=== PATIENT | male | born 1965 | race Caucasian/White ===

== ENCOUNTER 2019-01-28 20:22 | Observation (INO) ==
[2019-01-28 20:59] LABS: Hematocrit 43.7 % (37.5-50.1); Hemoglobin 15.2 g/dL (12.9-16.9); Mean Corpuscular HGB Conc 34.8 g/dL (31.6-35.5); Mean Corpuscular Hemoglobin 29.6 pg (28.0-33.3); Mean Platelet Volume 10.9 fL (9.4-12.4); Platelet Count 288 K/mcL (140-400); Red Blood Count 5.14 M/mcL (4.19-5.50); White Blood Count 8.5 K/mcL (4.3-11.1)
[2019-01-28 21:23] LABS: BUN/Creatinine Ratio 12 (6-26); Blood Urea Nitrogen 27 mg/dL (6-20); Carbon Dioxide 27 mEq/L (23-29); Chloride 106 mEq/L (98-107); Glucose 152 mg/dL (70-105); Osmolality,Calculated 300 (280-300); Potassium 3.6 mEq/L (3.5-5.1); Sodium 141 mEq/L (136-145); Troponin I < 0.03 ng/mL (< 0.04); eGFR For African Americans 39 (> 60); eGFR For Non-African Americans 32 (> 60)
[2019-01-29] MEDS ORDERED: Naloxone 0.4 MG/ML INJ IVP PRN (03:00)
--- NOTE | 2019-01-29 03:09 | Internal Med History&Physical ---
Date of Encounter: 01/29/19 Time of Encounter: 02:30 Internal Medicine - H&P: HPI Chief complaint: Chest Pain Admitted From: Home Plans for Post Hospital Care: Home History of present illness: Mr. Puckett is a 53 year old male with past medical history significant for hypertension who presents for complaints of intermittent chest pain across chest over past 3-4 weeks. Pain is occurring more frequently and becoming more intense so decided to come to ER for further evaluation. Pain is associated with shortness of breath, diaphoresis, and dizziness. Denies any known exacerbating factors but does report pain is somewhat improved with aspirin and ibuprofen. Denies feeling like he is going to pass out. Chest x-ray showed no acute abnormality detected. EKG showed sinus rhythm. Currently is pain-free at this time. Currently denies any headache, chest pain, shortness of breath, abdominal pain, nausea, bowel or bladder changes. Denies previous history of echocardiogram but does report stress test around 2002 that was normal as far as he knows. Follows intermittently with a primary care provider but denies any other routine follow-up. Reports checking his blood pressures regularly at home and systolic averaging 120-140. Past Med Surg Social Fam HX - Past Medical History Medical history: hypertension Psychiatric history: no psych history - Past Surgical History Surgical History: orthopedic, other Additional surgical history: Left shoulder surgery - Social History Smoking Status: Never smoker Smokeless Tobacco Status: No Alcohol use: occasionally Drug use: none - Family History Brother Hx Family Cardiac Disorders: Yes Sister Hx Family Cardiac Disorders: Yes Internal Medicine - H&P: Meds Meclizine [Antivert] 25 mg PO TID PRN 01/29/19 [History] Metoprolol Tartrate 50 mg PO DAILY 01/29/19 [History] Triamterene/Hydrochlorothiazid [Triamterene-Hctz 75-50 mg Tab] 1 each PO DAILY 01/29/19 [History] Allergy/AdvReac Type Severity Reaction Status Date / Time No Known Allergies Allergy Verified 01/28/19 21:14 All Systems PM: A 10-system review of systems was performed and is negative for pertinent findings except as documented above in the HPI. - Constitutional Vitals: Temp Pulse Resp BP Pulse Ox 97.7 F 85 14 138/96 97 01/29/19 02:46 01/29/19 02:46 01/29/19 02:46 01/29/19 02:46 01/29/19 02:46 Exam: General: Alert and oriented. Skin:Normal color, no rash, no lesions. HEENT:Pupils equal, round and reactive. Cardiovascular:Normal S1 & S2, no rubs, murmurs or gallops. No JVD. Pulse regular. Lungs:Breath sounds decreased, no wheezes or crackles. Abdomen:Soft, non-tender, no rigidity. Extremities:No deformity, no edema or tenderness, no joint swelling or clubbing. Neurological:Normal cognition and motor skills. Pulses:Carotid and radial pulses normal +2. Rest of the physical exam is non contributory. Internal Med - H&P Results - Labs CBC & Chem 7: 01/28/19 20:42 01/28/19 20:42 Labs: Short CBC 01/28/19 Range/Units 20:42 WBC 8.5 (4.3-11.1) K/mcL Hgb 15.2 (12.9-16.9) g/dL Hct 43.7 (37.5-50.1) % Plt Count 288 (140-400) K/mcL BMP 01/28/19 20:42 Sodium 141 Potassium 3.6 Chloride 106 Carbon Dioxide 27 BUN 27 H Creatinine 2.17 H Glucose 152 H Calcium 9.0 Cardiac Enzymes 01/28/19 Range/Units 20:42 Troponin I < 0.03 (< 0.04) ng/mL - Impressions ITS Impressions Chest X-Ray 01/28/19 20:50 IMPRESSION: No acute abnormality detected. D/ / Jovanny Arias MD / Jovanny Arias MD Interpreting Provider: Jovanny Arias MD - Assessment and Plan (1) Chest pain Current Visit: Yes Status: Acute Assessment and plan: Continuous cardiac monitoring. Initial troponin negative, serial troponins ordered. Echocardiogram ordered. Consider cardiac stress test pending renal function or perform without contrast. NPO. Qualifiers: Chest pain type: unspecified Qualified Code(s): R07.9 - Chest pain, unspecified (2) Kidney dysfunction Current Visit: Yes Status: Acute Assessment and plan: BUN 27, creatinine 2.17, GFR 32. No previous labs for comparison, reports recently being told by PCP renal function elevated but unsure of lab values. Gentle IVF hydration ordered. Avoid nephrotoxins, hold diuretic. Repeat labs ordered. Nephrology consult ordered, will need called in a.m. (3) Hypertension Current Visit: Yes Status: Chronic Assessment and plan: Continue home medication once verified. Qualifiers: Hypertension type: unspecified Qualified Code(s): I10 - Essential (primary) hypertension - Time Spent With Patient Total time spent is greater than 50% in coordination of care (as documented) at patient's floor/unit and/or counseling patient:
[2019-01-29] MEDS ORDERED: 0.9 % Sodium Chloride 1,000 ML IVC SCH ×2 (03:15)
[2019-01-29] MEDS: *HR* Heparin 5,000 UNIT/ML VIAL SQ SCH ×2 (06:08→18:18)
[2019-01-29 09:08] LABS: Basophils % 0.6 %; Eosinophils # 0.7 K/mcL (0.0-0.6); Eosinophils % 9.6 %; Hematocrit 41.9 % (37.5-50.1); Hemoglobin 14.1 g/dL (12.9-16.9); Immature Granulocytes % 0.9 % (0-4); Lymphocytes # 1.3 K/mcL (0.6-4.6); Lymphocytes % 18.8 %; Mean Corpuscular HGB Conc 33.7 g/dL (31.6-35.5); Mean Corpuscular Hemoglobin 29.3 pg (28.0-33.3); Mean Corpuscular Volume 86.9 fL (83.0-100.0); Mean Platelet Volume 10.7 fL (9.4-12.4); Monocytes # 0.7 K/mcL (0.0-1.3); Monocytes % 9.4 %; Neutrophils # 4.2 K/mcL (1.6-8.9); Platelet Count 243 K/mcL (140-400); Red Blood Count 4.82 M/mcL (4.19-5.50); Segmented Neutrophils % 60.7 %; White Blood Count 6.9 K/mcL (4.3-11.1)
[2019-01-29 09:32] LABS: BUN/Creatinine Ratio 13 (6-26); Blood Urea Nitrogen 25 mg/dL (6-20); Calcium 8.6 mg/dL (8.6-10.3); Carbon Dioxide 27 mEq/L (23-29); Chloride 108 mEq/L (98-107); Glucose 100 mg/dL (70-105); Osmolality,Calculated 294 (280-300); Potassium 3.8 mEq/L (3.5-5.1); Sodium 140 mEq/L (136-145); Troponin I < 0.03 ng/mL (< 0.04); eGFR For African Americans 45 (> 60); eGFR For Non-African Americans 37 (> 60)
[2019-01-29] MEDS ORDERED: Regadenoson 0.4 MG/5 ML SYRINGE IVP ONE (11:39)
--- NOTE | 2019-01-29 12:51 | Event Note ---
Date of Encounter: 01/29/19 Time of Encounter: 10:00 Patient was seen and examined at bedside-currently denies any chest pain or shortness of breath he will go for cardiac stress test today-continue IV fluid awaiting nephrology's recommendations discussed with the patient who verbalized understanding
[2019-01-29 13:44] LABS: Creatinine,Urine 122 mg/dL; Microalbumin,Urine < 7 mg/L
--- NOTE | 2019-01-29 13:57 | Nephrology Consult Note ---
Date of Encounter: 01/29/19 Time of Encounter: 13:00 Assessment and Plan (1) Kidney dysfunction Current Visit: Yes Status: Acute Elevated SCr unclear if Acute vs chronic in the setting of likely decreased po fluids while working outside in the heat Will obtain US of kidney Will check urine studies with UA, urine noted negative for proteinuria and esoin ophil pending Avoid nephrotoxins if possible Continue IVF for now Will add cpk and uric acid levels to labs drawn (2) Chest pain Current Visit: Yes Status: Acute Per primary, stress test today Qualifiers: Chest pain type: unspecified Qualified Code(s): R07.9 - Chest pain, u nspecified (3) Hypertension Current Visit: Yes Status: Chronic stable, continue current regimen but hold diuretics Qualifiers: Hypertension type: unspecified Qualified Code(s): I10 - Essential (primary) hypertension History of Present Illness - Reason for Consult Consult date: 01/29/19 Acute Kidney Injury Requesting physician: Augustin Flores - History of Present Illness 53 y o male with PMH of HTN admitted with chest pain, undergoing cardiac workup and noted with elevated SCr. Renal consulted for management of renal fxn. Pt was made recently aware of elevated SCR at 1.75 by pcp and told to drinking more fluids. 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 SCr noted at 2.17, GFR 32 improving to 1.93, GFR 37 overnight on IVF. Pt seen and examined with family ay bedside. Past Med Surg Social Fam HX - Past Medical History Medical history: hypertension Psychiatric history: no psych history - Past Surgical History Surgical History: orthopedic, other Additional surgical history: Left shoulder surgery - Social History Smoking Status: Never smoker Smokeless Tobacco Status: No Alcohol use: occasionally Drug use: none - Family History Brother Hx Family Cardiac Disorders: Yes Sister Hx Family Cardiac Disorders: Yes Medications and Allergies RX: Meclizine [Antivert] 25 mg PO TID PRN 01/29/19 [History] RX: Metoprolol Tartrate 50 mg PO HS 01/29/19 [History] Triamterene/Hydrochlorothiazid [Triamterene-Hctz 75-50 mg Tab] 1 tab PO QAM 01/29/19 [History] Allergy/AdvReac Type Severity Reaction Status Date / Time No Known Allergies Allergy Verified 01/28/19 21:14 Review of Systems Constitutional: fatigue (admits) Cardiovascular: chest pain (admits), leg edema (denies) Respiratory: dyspnea (denies) Exam - Vital Signs Vital signs: Initial Vital Signs Temp Pulse Resp BP Pulse Ox 97.9 F 93 14 154/104 96 01/28/19 20:45 01/28/19 20:45 01/28/19 20:45 01/28/19 20:45 01/28/19 20:45 Vital Signs - Last 8 Hours Temp Pulse Resp BP Pulse Ox 01/29/19 07:53 97.7 F 66 17 143/94 97 Intake and Output 01/28/19 01/29/19 01/29/19 23:59 07:59 15:59 Other: Weight 104.145 kg 102.6 kg Patient Weight 01/29/19 23:59 Weight 102.6 kg - General Appearance General appearance: well-developed, well-nourished EENT: ATNC, mucous membranes moist Neck: no JVD, supple Respiratory: clear Cardiology: no edema, normal S1, normal S2 Gastrointestinal: no tenderness, no guarding Integumentary: warm and dry Neurologic: no focal deficit Musculoskeletal: no deformities Psychiatric: mood/affect appropriate, cooperative Results - Lab Results 01/29/19 08:44 01/29/19 08:44 Most recent lab results 01/29/19 01/29/19 08:44 12:50 Calcium 8.6 Urine Creatinine 122 Urine Total Protein 5 Consult Discharge Plan - Plan Referrals: Liliana Malin CNP [Primary Care Provider] - 02/02/19 10:00 am
[2019-01-29 15:33] LABS: Creatine Kinase 68 Units/L (30-223); Uric Acid 10.9 mg/dL (2.3-7.6)
[2019-01-29] MEDS: Acetaminophen 325 MG TABLET PO PRN ×2 (16:05→23:43)
--- NOTE | 2019-01-29 16:13 | Electrocardiograph Report ---
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
[2019-01-29 16:21] LABS: Bilirubin,Urine Negative (Negative); Blood,Urine Negative (Negative); Clarity,Urine Clear (Clear); Color,Urine Yellow (Yellow); Glucose,Urine (UA) Normal (Normal); Ketones,Urine Negative (Negative); Leukocyte Esterase,Urine Negative (Negative); Nitrite,Urine Negative (Negative); Protein,Urine Negative (Neg-Trace); Urobilinogen,Urine Normal (Normal)
[2019-01-30] MEDS ORDERED: Saline Nasal Spray 44 ML BOTTLE NS PRN (01:06)
[2019-01-30 04:50] LABS: Basophils # 0.1 K/mcL (0.0-0.2); Basophils % 1.2 %; Eosinophils # 0.7 K/mcL (0.0-0.6); Eosinophils % 9.7 %; Hematocrit 41.4 % (37.5-50.1); Immature Granulocytes % 0.9 % (0-4); Lymphocytes # 1.4 K/mcL (0.6-4.6); Lymphocytes % 21.1 %; Mean Corpuscular HGB Conc 33.8 g/dL (31.6-35.5); Mean Corpuscular Hemoglobin 29.5 pg (28.0-33.3); Mean Corpuscular Volume 87.3 fL (83.0-100.0); Mean Platelet Volume 10.9 fL (9.4-12.4); Monocytes # 0.6 K/mcL (0.0-1.3); Monocytes % 9.3 %; Neutrophils # 3.9 K/mcL (1.6-8.9); Platelet Count 253 K/mcL (140-400); Red Blood Count 4.74 M/mcL (4.19-5.50); Red Cell Distribution Width 11.9 % (11.5-14.5); Segmented Neutrophils % 57.8 %; White Blood Count 6.7 K/mcL (4.3-11.1)
[2019-01-30] MEDS: *HR* Heparin 5,000 UNIT/ML VIAL SQ SCH (05:16)
[2019-01-30 08:21] LABS: Estimated Average Glucose 117 mg/dl
[2019-01-30 08:38] LABS: Calcium 8.9 mg/dL (8.6-10.3); Potassium 4.1 mEq/L (3.5-5.1)
[2019-01-30 08:48] VITALS: BP 140/88
--- NOTE | 2019-01-30 08:48 | Event Note ---
Date of Encounter: 01/30/19 Time of Encounter: 08:47 - Nephrology Event Note Nephrology Chart Update I reviewed the handoff from my colleague Dr. Ambrosio. With improved SCr and a bland UA, he is improving. I will politely sign-off at this time, but please feel free to call or page me with any renal questions. I read in the handoff that the pt wants to follow up in the clinic with Dr. Ambrosio, which is reasonable. I recommend follow up in about 3-5 weeks with a BMP in 1 week. Thank you.
[2019-01-30] MEDS ORDERED: Loratadine 10 MG TABLET PO SCH (09:00)
--- NOTE | 2019-01-30 11:05 | Discharge Summary ---
- NOTES TO OUTPATIENT PROVIDER Notes to Outpatient Provider: Follow up with PCP in one week. Follow-up with nephrology in 2 to 3 weeks. Please stop taking Traimterene / HCTZ - daily due to CKD-3. Started on new medication Norvasc 5mg Daily for your BP. Orders not resulted at time of discharge: Pending orders 01/29/19 10:54 NM ronald perf SPECT multi [NM] Routine Date of Encounter: 01/30/19 Time of Encounter: 10:00 - Discharge Diagnosis (1) Chest pain Priority: Primary Status: Acute Qualifiers: Chest pain type: unspecified Qualified Code(s): R07.9 - Chest pain, unspecified (2) CKD stage G3b/A2, GFR 30-44 and albumin creatinine ratio 30-299 mg/g Priority: Secondary Status: Acute (3) Hypertension Priority: Secondary Status: Chronic Qualifiers: Hypertension type: essential hypertension Qualified Code(s): I10 - Essential (primary) hypertension Hospital course: Mr. Puckett is a 53 year old male with known past medical history of hypertension presented to ER with intermittent chest pain located sub sternal and and non-radiating. He was admitted in the hospital and placed on environmental monitoring specialist. His serial troponin came back as negative. He did go for nuclear stress test which came back is negative for ischemia/infarction. He happened to have ANNMARIE with CKD stage III. With IV hydration is creatinine improved and seems to be at baseline today. I did recommend him to stop taking his diuretics and f/u with PCP as well as nephro. - Time Spent with Patient Total time spent providing and/or coordinating discharge services: - Discharge Medications Prescriptions: New amLODIPine [Norvasc] 5 mg PO DAILY #30 tablet Continued Meclizine [Antivert] 25 mg PO TID PRN PRN Reason: Dizziness Metoprolol Tartrate 50 mg PO HS Discontinued Triamterene/Hydrochlorothiazid [Triamterene-Hctz 75-50 mg Tab] 1 tab PO QAM Home Medications: Meclizine [Antivert] 25 mg PO TID PRN 01/29/19 [History] Metoprolol Tartrate 50 mg PO HS 01/29/19 [History] amLODIPine [Norvasc] 5 mg PO DAILY #30 tablet 01/30/19 [Rx] Allergies/Adverse Reactions: Allergy/AdvReac Type Severity Reaction Status Date / Time No Known Allergies Allergy Verified 01/28/19 21:14 Date of admission: 01/28/19 22:54 Primary care physician: Liliana Malin CNP Consults: 01/29/19 03:03 Consult to Nephrology [CONS] Routine Consulting Provider: Kidney Peyton/KADEEM/HAYLEY/DRAGAN Reason for Consult: BUN 27, Creatinine 2.17, and GFR 32 on admission with no known history of chronic kidney disease. Reports having abnormal kidney function labs with PCP around 2 weeks ago but unsure what they were and no previous on file for comparison. Call Completed: No - Constitutional Vitals: Temp Pulse Resp BP Pulse Ox 97.6 F 61 16 140/88 96 01/30/19 08:40 01/30/19 08:47 01/30/19 08:47 01/30/19 08:47 01/30/19 08:47 General appearance: Present: A&O X 3, no acute distress, answers questions appropriately Exam: Gen: Alert, awake, Oriented to time,place and person Chest: Diminished breath sounds B/L, No wheezing, No crackles, No rales Heart: S1S2+ RRR No murmurs Abd: Soft, NT, BS +, No organomegaly Ext: No edema, pulses are palpable, No calf tenderness Neuro : No acute focal neuro deficits noticed Skin: No rash. - Patient Status Disposition: Home, Self-Care Condition: Good Overall status at discharge: patient is back to baseline - Ambulatory Orders Ambulatory Orders: Basic Metabolic Panel [CHEM] Time Frame: 5 Days, Facility: [facility], Location: Lab - Discharge Instructions Follow Up With: Liliana Malin CNP [Primary Care Provider] - 02/02/19 10:00 am Forms: ED Satisfaction Letter - Diet and Activity Activity: increase activity as tolerated Diet: low salt diet
== END 2019-01-30 12:16 | disposition home or self-care (01) ==
LOC: EMEROOARM 20:22 → 3BNU 20:22 → SUATTDRO 22:54 → 3BNU 23:31
PROVIDERS: ADMIT Pediatrics; ATTEND Family Medicine